=== PATIENT | male | born 1990 | race Caucasian/White ===

== ENCOUNTER → 2017-12-20 08:10 | Outpatient (CLI) | payer BC ==
[2017-12-20 08:50] LABS: BASOPHILS 0.4 % (0-2); EOSINOPHILS 2.1 % (0-7); HEMATOCRIT 44.8 % (42.0-54.0); HEMOGLOBIN 15.5 g/dL (13.5-17.5); LYMPHOCYTES 33.5 % (15-50); MCH 32.8 pg (26.0-34.0); MCHC 34.6 g/dL (31.0-37.0); MCV 94.9 fL (80.0-100.0); MEAN PLATELET VOLUME 11.2 fL (7.4-10.4); MONOCYTES 9.5 % (2-11); NEUTROPHILS 54.5 % (40-80); PLATELET COUNT 149 10x3/uL (130-400); RBC 4.72 10x6/uL (4.20-6.10); RDW 12.2 % (11.5-14.5); WBC 5.1 10x3/uL (4.8-10.8)
[2017-12-20 09:10] LABS: % SATURATION 31 % (15-55); IRON 101 ug/dl (35-150); TOTAL IRON BIND CAPACITY 318 ug/dl (260-445); UNSAT IRON BIND CAPACITY 217 ug/dl (150-375)
[2017-12-20 09:13] LABS: APTT 28.6 SECONDS (22.8-39.4); INR 1.13 (0.85-1.17); PROTIME 14.1 SECONDS (11.6-15.0)
[2017-12-20 09:32] LABS: ALBUMIN 4.3 g/dL (3.4-5.0); ALKALINE PHOSPHATASE 91 U/L (46-116); ALT (SGPT) 25 U/L (10-68); AMYLASE - SERUM 43 U/L (25-115); BILIRUBIN - DIRECT 0.26 mg/dL (0.00-0.30); BILIRUBIN - INDIRECT 2.62 mg/dL (0.00-1.00); BILIRUBIN - TOTAL 2.88 mg/dL (0.2-1.3); CALC OSMOLALITY 278 mosm/kg (275-300); CARBON DIOXIDE 29.5 mmol/L (21.0-32.0); CHLORIDE - SERUM 103 mmol/L (98-107); CHOL - HDL RATIO 3.2 ratio (2.3-4.9); CHOLESTEROL, TOTAL 136 mg/dL (0-200); CREATININE - SERUM 1.1 mg/dL (0.6-1.3); FERRITIN 66 ng/mL (3-244); GAMMA GT 25 U/L (5-85); GLUCOSE 88 mg/dL (74-106); HDL CHOLESTEROL 43 mg/dL (32-96); LDL CHOLESTEROL 84 mg/dL (0-100); LIPASE 83 U/L (73-393); POTASSIUM - SERUM 4.3 mmol/L (3.5-5.1); PROTEIN - SERUM 7.5 g/dL (6.4-8.2); SODIUM 140 mmol/L (136-145); TRIGLYCERIDE 46 mg/dL (30-200); UREA NITROGEN 16 mg/dL (7-18); eGFR NON AFRICAN AMERICAN 87 mL/min (90-120)
[2017-12-21 07:31] LABS: FOLATE (FOLIC ACID) - SERUM 12.6 ng/mL (>3.0)
[2017-12-21 08:20] LABS: HEPATITIS C ANTIBODY <0.1 (0.0-0.9)
[2017-12-21 10:19] LABS: ALPHA FETOPROTEIN -(TUMOR MRK) 3.6 ng/mL (0.0-8.3)
[2017-12-21 12:17] LABS: HAPTOGLOBIN 105 mg/dL (34-200)
[2017-12-21 14:21] LABS: ANA REFLEX - DIRECT Negative (Negative)
[2017-12-22 16:14] LABS: SMOOTH MUSCLE ABS (ACTIN) 18 Units (0-19)
== END | disposition home or self-care (01) ==
LOC: D.NM 08:00
PROVIDERS: Internal Medicine Gastroenterology
DX: E80.6 Other disorders of bilirubin metabolism (principal); R19.7 Diarrhea, unspecified

== ENCOUNTER → 2018-01-26 10:06 | Outpatient (CLI) | payer BC ==
[2018-01-26 11:45] LABS: ALBUMIN 4.5 g/dL (3.4-5.0); BILIRUBIN - DIRECT 0.16 mg/dL (0.00-0.30); BILIRUBIN - INDIRECT 3.24 mg/dL (0.00-1.00); BILIRUBIN - TOTAL 3.4 mg/dL (0.2-1.3); PROTEIN - SERUM 7.5 g/dL (6.4-8.2)
== END | disposition home or self-care (01) ==
LOC: D.LAB 08:00
PROVIDERS: Internal Medicine Gastroenterology
DX: R79.89 Other specified abnormal findings of blood chemistry (principal); E80.6 Other disorders of bilirubin metabolism

== ENCOUNTER 2018-05-06 08:14 | Inpatient (IN) | payer BC ==
[~2018-05-06] VITALS: Ht 185.4 cm; Wt 72.6 kg
--- NOTE | ~2018-05-06 | OP ---
PATIENT NAME: ALEJANDRO BERNARD MEDICAL RECORD: [id number] LOCATION:[facility] [id number] ADMISSION DATE:05/06/18 SURGEON: CASSIE CEJA MD DATE OF OPERATION: 05/08/2018 PREOPERATIVE DIAGNOSIS: Segmental comminuted fracture of the right clavicle with foreshortening and overlapping. POSTOPERATIVE DIAGNOSIS: Segmental comminuted fracture of the right clavicle with foreshortening and overlapping. PROCEDURE: Open reduction and internal fixation of right clavicle. SURGEON: Cassie Ceja MD EQUIPMENT VALIDATION ENGINEER: MOISÉS Nicole ANESTHESIA: John Melara MD INTRAOPERATIVE COMPLICATIONS: None. SUMMARY OF PATHOLOGIC FINDINGS: Consistent with preoperative radiographs. The patient had a comminuted clavicle fracture, which required both cabling and plating. IMPLANTS USED: [employer] VariAx lateral cable plate. OPERATIVE SUMMARY IN DETAIL: After obtaining the appropriate preoperative orthopaedic surgery consent as well as anesthetic consultation, evaluation, and clearance, the patient was brought to the operating room and placed on the operating table in supine position. After general laryngeal mask was administered, the patient was placed in modified beachchair position with a roll under his scapula. The patient's right shoulder, neck, and clavicle area were prepped and draped in routine sterile fashion. Incision was made directly over the clavicle with takedown at the level of clavicle back through the platysmus. This was done with Bovie. All bleeding was cauterized. The fracture was identified along with fracture fragments. These were then realigned and provisionally pinned under fluoroscopic guidance. Having completed this, the lateral plate VariAx from [place] was placed with again fluoroscopic guidance with a spinal needle in the AC joint. The plate was then fixed with combination of both compression and locking screws. Mid substance however had comminution that required a single 160 [place] cable for better fixation. Having completed this, final radiographs were taken and submitted for radiologist's review. The wound was then copiously irrigated. Platysma was closed with a #1 Vicryl in running fashion. This was followed by 2-0 Vicryl and skin bertin. Sterile dressings were applied. The patient was awakened. LMA was removed. She was taken to recovery room in stable condition. All final needle and sponge counts were correct. TRANSINT:[id number] Voice Confirmation ID: [id number] DOCUMENT ID: [id number] OPERATIVE REPORT [id number] ALEJANDRO BERNARD MD, CASSIE VALADEZ at 1356 CC: [id number] DICTATION DATE: 05/08/18 1602 SALES RELATIONSHIP MANAGER: 05/08/18 1632 DIS IN 05/08/18 [facility] [address] [id number]
[2018-05-06] MEDS ORDERED: CELEXA40 MG PO (08:20)
[2018-05-06 09:41] LABS: BASOPHILS 0.3 % (0-2); HEMATOCRIT 43.1 % (42.0-54.0); HEMOGLOBIN 14.8 g/dL (13.5-17.5); IMMATURE GRANULOCYTES 0.2 % (0-5); LYMPHOCYTES 17.1 % (15-50); MCHC 34.3 g/dL (31.0-37.0); MCV 96.2 fL (80.0-100.0); MEAN PLATELET VOLUME 11.8 fL (7.4-10.4); NEUTROPHILS 69.4 % (40-80); PLATELET COUNT 121 10x3/uL (130-400); RBC 4.48 10x6/uL (4.20-6.10); WBC 6.4 10x3/uL (4.8-10.8)
[2018-05-06 09:55] LABS: INR 1.18 (0.85-1.17); PROTIME 14.6 SECONDS (11.6-15.0)
[2018-05-06 09:58] LABS: ALBUMIN 4.3 g/dL (3.4-5.0); ANION GAP 9.7 mmol/L (8-16); BILIRUBIN - TOTAL 2.94 mg/dL (0.2-1.3); CALCIUM 8.9 mg/dL (8.5-10.1); CARBON DIOXIDE 29.1 mmol/L (21.0-32.0); CREATININE - SERUM 1.3 mg/dL (0.6-1.3); POTASSIUM - SERUM 3.8 mmol/L (3.5-5.1); PROTEIN - SERUM 7.5 g/dL (6.4-8.2)
[2018-05-06 11:14] VITALS: BP 110/72; Ht 185.4 cm; Wt 72.6 kg
[2018-05-06 11:46] VITALS: BP 110/72
[2018-05-06 16:32] VITALS: BP 116/59
[2018-05-06 20:01] VITALS: BP 135/71
[2018-05-07 03:45] VITALS: BP 115/60
[2018-05-07 06:39] LABS: BASOPHILS 0.3 % (0-2); EOSINOPHILS 3.6 % (0-7); HEMATOCRIT 40.7 % (42.0-54.0); IMMATURE GRANULOCYTES 0.3 % (0-5); MCH 33.6 pg (26.0-34.0); MCHC 34.4 g/dL (31.0-37.0); MCV 97.6 fL (80.0-100.0); MEAN PLATELET VOLUME 11.8 fL (7.4-10.4); MONOCYTES 12.7 % (2-11); NEUTROPHILS 56.1 % (40-80); PLATELET COUNT 135 10x3/uL (130-400); RBC 4.17 10x6/uL (4.20-6.10); RDW 12.3 % (11.5-14.5)
[2018-05-07 07:03] LABS: CALC OSMOLALITY 279 mosm/kg (275-300); CALCIUM 8.3 mg/dL (8.5-10.1); CARBON DIOXIDE 29.7 mmol/L (21.0-32.0); CHLORIDE - SERUM 104 mmol/L (98-107); CREATININE - SERUM 1.1 mg/dL (0.6-1.3); GLUCOSE 93 mg/dL (74-106); POTASSIUM - SERUM 4.2 mmol/L (3.5-5.1); SODIUM 140 mmol/L (136-145); eGFR NON AFRICAN AMERICAN 87 mL/min (90-120)
[2018-05-07 07:05] LABS: UREA NITROGEN 14 mg/dL (7-18)
[2018-05-07 08:20] VITALS: BP 119/69
[2018-05-07 12:06] VITALS: BP 118/60
[2018-05-07 16:41] VITALS: BP 117/55
[2018-05-08 01:13] VITALS: BP 116/62
[2018-05-08 03:20] VITALS: BP 126/59
[2018-05-08 09:05] VITALS: BP 123/68
[2018-05-08 11:57] VITALS: BP 128/62
[2018-05-08] MEDS ORDERED: PERCOCET 10/3251 TA1 PO (15:02)
[2018-05-08 15:54] VITALS: BP 113/63
== END 2018-05-08 21:09 | disposition home or self-care (01) | DRG 517 ==
LOC: D.ER 08:14 → D.MS 10:07
PROVIDERS: Family Medicine; Orthopaedic Surgery
PROC: 0PS904Z Reposition Right Clavicle with Internal Fixation Device, Open Approach (ICD-10-PCS; principal; 2018-05-08 10:45)
DX: S42.011A Anterior displaced fracture of sternal end of right clavicle, initial encounter for closed fracture (principal); S42.031A Displaced fracture of lateral end of right clavicle, initial encounter for closed fracture; V19.88XA Pedal cyclist (driver) (passenger) injured in other specified transport accidents, initial encounter; F41.9 Anxiety disorder, unspecified

== ENCOUNTER 2018-05-21 20:57 | Emergency (ER) | payer BC ==
[~2018-05-21] VITALS: Ht 185.4 cm; Wt 72.7 kg
[~2018-05-21 20:57] MED LIST: CELEXA40 MG PO; PERCOCET 10/3251 TA1 PO
[2018-05-21 21:37] VITALS: Ht 185.4 cm; Wt 72.7 kg
[2018-05-22 02:53] VITALS: BP 113/72
== END 2018-05-21 23:55 | disposition home or self-care (01) ==
LOC: D.ER 20:57
DX: Z48.01 Encounter for change or removal of surgical wound dressing (principal)